=== PATIENT | male | born 1960 | race Caucasian/White ===

== ENCOUNTER 2017-10-20 09:22 | Inpatient (IN) | payer BC ==
[~2017-10-20] VITALS: Ht 190.5 cm; Wt 106.2 kg
[2017-11-24] MEDS ORDERED: VANCOMYCIN PER PHARMACY MC ONE (08:33)
[2017-11-24] MEDS ORDERED: LIDOCAINE 1%, 2ML ONE (08:53)
[2017-11-24] MEDS ORDERED: PLEASE ENTER HEIGHT AND WEIGHT MC SCH (09:00)
[2017-11-24] MEDS ORDERED: METF500T4 PO (09:00)
[2017-11-24] MEDS ORDERED: PLEASE ENTER ALLERGIES MC SCH ×2 (09:00)
[2017-11-24] MEDS ORDERED: ATOR20TA9 PO (09:00)
[2017-11-24] MEDS ORDERED: ATEN50TA41 PO (09:00)
[2017-11-24] MEDS ORDERED: FLUC150T2 PO (09:00)
[2017-11-24 09:04] VITALS: BP 152/99
[2017-11-24] MEDS ORDERED: LACTATED RINGERS 1,000 ML IV SCH (09:15)
[2017-11-24 09:24] LABS: HEMATOCRIT 45.3 % (39.2-51.8); HEMOGLOBIN 15.3 g/dL (13.7-18.0); WHITE BLOOD COUNT 6.6 x10^3/uL (3.4-10)
[2017-11-24] MEDS ORDERED: LIDOCAINE 1%, 2ML SQ PRN (09:30)
[2017-11-24] MEDS ORDERED: GABAPENTIN 300 MG CAPSULE PO ONE (09:30)
[2017-11-24] MEDS ORDERED: ACETAMINOPHEN 500 MG TABLET PO ONE (09:30)
[2017-11-24] MEDS ORDERED: VANCOMYCIN 2,000 MG in SODIUM CHLORIDE 0.9% 500 ML IV ONE (09:30)
[2017-11-24 09:36] LABS: BLOOD UREA NITROGEN 13 mg/dL (7-18)
[2017-11-24 09:38] LABS: ASPARTATE AMINO TRANSFERASE 20 U/L (15-37)
[2017-11-24] MEDS ORDERED: KETOROLAC 60 MG/2 ML ONE (09:54)
[2017-11-24] MEDS ORDERED: TRANEXAMIC ACID 100 MG/ML, 10ML ONE ×2 (09:54)
[2017-11-24] MEDS ORDERED: EPINEPHRINE 1 MG/ML, 1ML ONE (09:55)
[2017-11-24] MEDS ORDERED: SODIUM CHLORIDE 0.9% 100 ML ONE (09:55)
[2017-11-24] MEDS ORDERED: ROPIvacaine/PF 0.2%, 20 ML ONE (09:55)
[2017-11-24 10:11] LABS: HIV 1&2 ANTIBODY SCREEN Nonreactive (Nonreactive); HIV-1 p24 ANTIGEN Nonreactive (Nonreactive)
[2017-11-24] MEDS ORDERED: DEXAMETHASONE 4 MG/ML, 1ML IVPush ONE (12:30)
[2017-11-24] MEDS ORDERED: DIPHENHYDRAMINE 50 MG/ML, 1ML IVPush ONE (12:30)
[2017-11-24] MEDS ORDERED: DEXAMETHASONE 4 MG/ML, 5ML ONE (12:39)
[2017-11-24] MEDS ORDERED: FENTANYL PF 250 MCG/5ML ONE (13:26)
[2017-11-24] MEDS ORDERED: MIDAZOLAM 1 MG/ML, 2ML ONE (13:26)
[2017-11-24] MEDS ORDERED: ROCURONIUM 10 MG/ML,10ML ONE (13:42)
[2017-11-24] MEDS ORDERED: PROPOFOL 10 MG/ML, 20ML ONE (13:42)
[2017-11-24] MEDS ORDERED: SUCCINYLCHOLINE 20 MG/ML, 10ML ONE (13:42)
[2017-11-24] MEDS ORDERED: NEOSTIGMINE 1 MG/ML, 10ML ONE (13:42)
[2017-11-24] MEDS ORDERED: ONDANSETRON 2MG/ML, 2ML ONE (13:42)
[2017-11-24] MEDS ORDERED: GLYCOPYRROLATE 0.2MG/1ML, 5ML ONE (13:42)
[2017-11-24] MEDS ORDERED: DEXAMETHASONE 4 MG/ML, 1ML ONE (13:42)
[2017-11-24] MEDS ORDERED: KETAMINE 10 MG/ML, 20ML ONE (13:58)
[2017-11-24] MEDS ORDERED: PROMETHAZINE 25 MG/ML, 1ML IV PRN (15:00)
[2017-11-24] MEDS ORDERED: HYDROmorphone 1 MG/ML, 1ML IV PRN (15:00)
[2017-11-24] MEDS ORDERED: FENTANYL PF 100 MCG/2ML IV PRN (15:00)
[2017-11-24] MEDS ORDERED: DIAZEPAM 5 MG/ML, 2ML IVPush PRN (15:00)
[2017-11-24] MEDS ORDERED: ALBUTEROL SULFATE 2.5 MG/3 ML NPPB PRN (15:00)
[2017-11-24] MEDS ORDERED: MEPERIDINE/PF 25MG/0.5ML IVPush PRN (15:00)
[2017-11-24] MEDS ORDERED: OXYcodone 5 MG/5 ML ORAL.SOL UDC PO PRN (15:00)
[2017-11-24] MEDS ORDERED: ACETAMINOPHEN 650 MG/20.3 ML UDC ONE (15:26)
[2017-11-24] MEDS ORDERED: MEPERIDINE/PF 50 MG/ML ONE (15:26)
[2017-11-24] MEDS ORDERED: OXYcodone 5 MG/5 ML ORAL.SOL UDC ONE (15:27)
[2017-11-24] MEDS ORDERED: BISACODYL 10 MG SUPP PR PRN (15:30)
[2017-11-24] MEDS ORDERED: DIPHENHYDRAMINE 50 MG CAPSULE PO PRN (15:30)
[2017-11-24] MEDS ORDERED: SENNA/DOCUSATE TABLET PO PRN (15:30)
[2017-11-24] MEDS ORDERED: DIAZEPAM 5 MG TABLET PO PRN (15:30)
[2017-11-24] MEDS ORDERED: ONDANSETRON 4 MG TABLET PO PRN (15:30)
[2017-11-24] MEDS ORDERED: HYDROcodone/APAP 5/325 TABLET PO PRN (15:30)
[2017-11-24] MEDS ORDERED: ALUMINUM/MAG/SIMETHICONE 30 ML UDC PO PRN (15:30)
[2017-11-24] MEDS ORDERED: TAMSULOSIN 0.4 MG CAP.ER.24H PO PRN (15:30)
[2017-11-24] MEDS ORDERED: morphine SULFATE 10 MG/ML, 1ML IV PRN (15:30)
[2017-11-24] MEDS ORDERED: MAGNESIUM HYDROXIDE 8%, 30ML UDC PO PRN (15:30)
[2017-11-24] MEDS: ACETAMINOPHEN 650 MG/20.3 ML UDC PO PRN ×2 (15:45→20:55)
[2017-11-24] MEDS ORDERED: hydrALAzine 20 MG/ML, 1ML ONE (15:56)
[2017-11-24] MEDS ORDERED: hydrALAzine 20 MG/ML, 1ML IV PRN (16:30)
[2017-11-24] MEDS: NS + 20MEQ KCL 1,000 ML IV SCH (18:13)
[2017-11-24 20:10] VITALS: BP 130/86
[2017-11-24] MEDS: OXYcodone IR 5MG TABLET PO PRN (20:55)
[2017-11-24] MEDS: DOCUSATE 100 MG CAPSULE PO SCH (20:55)
[2017-11-24] MEDS: CEFAZOLIN PMX 2GM/50ML 50 ML IVPB SCH (22:32)
[2017-11-24 23:36] VITALS: BP 90/58
[2017-11-25 01:21] VITALS: BP 115/74
[2017-11-25] MEDS: OXYcodone IR 5MG TABLET PO PRN ×3 (01:26→10:08)
[2017-11-25] MEDS: ACETAMINOPHEN 650 MG/20.3 ML UDC PO PRN ×3 (01:27→10:07)
[2017-11-25 04:14] VITALS: BP 98/63
[2017-11-25] MEDS: CEFAZOLIN PMX 2GM/50ML 50 ML IVPB SCH (05:28)
[2017-11-25] MEDS: NS + 20MEQ KCL 1,000 ML IV SCH (05:29)
[2017-11-25] MEDS ORDERED: ASPIRIN 81 MG TABLET EC PO SCH (06:00)
[2017-11-25 06:02] LABS: HEMATOCRIT 35.1 % (39.2-51.8); HEMOGLOBIN 11.9 g/dL (13.7-18.0)
[2017-11-25] MEDS ORDERED: ATENOLOL 50 MG TABLET PO SCH (09:00)
[2017-11-25] MEDS ORDERED: metFORMIN 500 MG TABLET PO SCH (09:00)
[2017-11-25] MEDS ORDERED: ATORVASTATIN 10 MG TABLET PO SCH (09:00)
[2017-11-25 09:14] VITALS: BP 95/55
[2017-11-25] MEDS: DOCUSATE 100 MG CAPSULE PO SCH (09:16)
[2017-11-25 10:47] VITALS: BP 93/56
[2017-11-25] MEDS ORDERED: ASPI-621 PO (11:03)
[2017-11-25] MEDS ORDERED: OXYC5CAP2 PO (11:03)
[2017-11-25] MEDS ORDERED: KETOROLAC 30 MG/1 ML IV SCH (15:30)
== END 2017-11-25 11:15 | disposition home or self-care (01) | DRG 470 ==
LOC: ORIP 11-24 08:16 → 4NOR 11-24 16:43 → DCLOUNGE 11-25 11:00
PROVIDERS: ADMIT Orthopaedic Surgery Adult Reconstructive Orthopaedic Surgery; ATTEND Orthopaedic Surgery Adult Reconstructive Orthopaedic Surgery
PROC: 0SRD0J9 Replacement of Left Knee Joint with Synthetic Substitute, Cemented, Open Approach (ICD-10-PCS; principal; 2017-11-24 11:00)
DX: M17.12 Unilateral primary osteoarthritis, left knee (principal)
CPT/HCPCS: 36415; 80053; 81003; 82962; 85014; 85018; 85025; 86703; 87081; 87899; 93005; C1713; J0171; J0690; J1100; J1885; J2175; J2250; J2405; J2704; J2710; J2795; J3010; J3370; J3480; J3490; C1776; G0435; J0330; J0360; J1200; J7040; J7120